=== PATIENT | female | born 1965 | race Caucasian/White ===

== ENCOUNTER → 2021-11-10 09:53 | Outpatient (CLI) | payer OTHER, SELFPAY ==
--- NOTE | ~2021-11-10 | US_ITS ---
EXAMINATION: US abdomen complete EXAM DATE: 11/10/2021 10:17 INDICATION: Metabolic syndrome. TECHNIQUE: Multiple grayscale and Doppler images of the complete abdomen were obtained (by a technolo gist who performed the scan) and subsequently reviewed. There is no prior study for comparison. FINDINGS: The abdominal aorta is normal in caliber. Visualized portion IVC is patent. The pancreatic head a nd body are normal in appearance. The pancreatic tail is not visualized. The liver has normal echogenicity and contour. There are no focal liver lesions identified. There is no evidence of intrahepatic biliary duct dilation. Portal venous flow was seen in the hepatopedal , normal direction and has normal Doppler waveform. Common bile duct measures 3 mm, which is normal. The gallbladder fossa is unremarkable. Right kidney: There is normal contour and echogenicity. It measures 10.2 x 4.4 x 4.5 centimeters. There are no focal renal lesions identified. There is no hydronephrosis. Left kidney: There is normal contour and echogenicity. It measures 9.9 x 5.5 x 5.1 centimeters. Th ere are no focal renal lesions identified. There is no hydronephrosis. The spleen measures 9.5 centimeters and is morphologically normal. IMPRESSION: 1. Unremarkable complete abdominal ultrasound exam. Reviewed, dictated and finalized at location A. WARE CLERK
== END ==
PROVIDERS: PCP Family Medicine
DX: E88.81 Metabolic syndrome and other insulin resistance (principal); G47.30 Sleep apnea, unspecified; J45.909 Unspecified asthma, uncomplicated; E03.9 Hypothyroidism, unspecified; E66.09 Other obesity due to excess calories; E66.01 Morbid (severe) obesity due to excess calories; Z79.899 Other long term (current) drug therapy
CPT/HCPCS: 76700